=== PATIENT | male | born 1960 | race Caucasian/White ===

== ENCOUNTER → 2016-08-26 | Outpatient (CLI) | payer OTHER ==
[~2016-08-26] MED LIST: AFRI0.052 EACH NARE; CPMMACHINE; DOCU1CAP39 PO; ERYT.5%O LEFT EYE; GETGO ROLLING W1 MI1; HYDR-3583 PO; MISC-163; PERC5TAB12 PO; REST15CA PO; THERTAB15 PO; WALKER WHEELS/F1 MIS; WHEEMIS3
[2016-08-26 10:15] LABS: AUTOMATED NEUTROPHIL # 4.2 TH/MM3 (1.8-7.7); BASOPHIL # 0.1 TH/MM3 (0-0.2); BASOPHIL % 0.8 % (0.0-2.0); EOSINOPHIL # 0.4 TH/MM3 (0-0.4); EOSINOPHIL % 5.8 % (0.0-4.0); HEMATOCRIT 43.5 % (39.0-51.0); HEMO FLAGS DIFF FINAL; LYMPH % 22.4 % (9.0-44.0); LYMPHOCYTE # 1.4 TH/MM3 (1.0-4.8); MEAN CELL VOLUME 91.2 FL (80.0-100.0); MEAN CORPUSCULAR HEMOGLOBIN 31.5 PG (27.0-34.0); MEAN CORPUSCULAR HGB CONC 34.5 % (32.0-36.0); MONO % 5.6 % (0.0-8.0); NEUT % 65.4 % (16.0-70.0); PLATELET COUNT 197 TH/MM3 (150-450); PROTHROMBIN TIME - PATIENT 10.7 SEC (9.8-11.6); RED BLOOD COUNT 4.77 MIL/MM3 (4.50-5.90); WHITE BLOOD COUNT 6.4 TH/MM3 (4.0-11.0)
[2016-08-26 11:01] LABS: HDL CHOLESTEROL 83.2 MG/DL (40.0-60.0)
== END ==
LOC: CLAB 09:47
PROVIDERS: ATTEND Family Medicine
DX: M25.522 Pain in left elbow (principal); Z00.01 Encounter for general adult medical examination with abnormal findings
CPT/HCPCS: 36415; 80061; 82306; 82607; 84443; 85025; 85610

== ENCOUNTER 2016-09-05 07:36 | Inpatient (IN) | payer OTHER ==
[~2016-09-05] VITALS: Ht 188 cm; Wt 132.4 kg
[2016-09-05] MEDS ORDERED: AFRI0.052 EACH NARE (08:35)
--- NOTE | 2016-09-07 15:33 | MH ---
cc: Paresh LENNON M.D. DATE OF ADMISSION: 09/14/2016 PREOPERATIVE DIAGNOSIS Osteoarthritic degeneration with varus deformities both left and right knees, now for total knee arthroplasties. ADMISSION HISTORY AND PHYSICAL This pleasant 55-year-old male is being admitted today for total left and right knee arthroplasty due to severe painful osteoarthritic degeneration with genu varus deformities. OTHER PAST HISTORY The patient has a history of no medical problems other than arthritis and he does have sleep apnea. He does not take medication for this. REVIEW OF SYSTEMS Review of systems is noncontributory. FAMILY HISTORY Noncontributory. SOCIAL HISTORY He does not smoke. He does drink some alcohol. PREVIOUS SURGERIES Previous surgeries include appendectomy and shoulder surgery. REVIEW OF SYSTEMS Noncontributory. FAMILY HISTORY Noncontributory. ALLERGIES PENICILLIN. PHYSICAL EXAMINATION GENERAL: We find a 55-year-old male, well-developed, well-nourished, oriented x3 complaining of pain in his knees. VITAL SIGNS: Blood pressure 130/82, pulse 56 and regular, respirations 18, temperature 98.5, pulse oximetry 98% on room air. HEENT: Eyes PERRLA, EOMI. Ears, nose, mouth clear. NECK: Supple. LUNGS: Clear. HEART: Regular rate. ABDOMEN: Soft. Positive bowel sounds and nontender. EXTREMITIES: Both knees have genu varus deformity. She is neurovascularly intact to her toes. IMPRESSION AT THIS TIME Severe painful osteoarthritic degeneration both left and right knee. PLAN Admission for a bilateral total knee arthroplasty today. The patient given a prescription for postop pain control in the office, understands the use of Hibiclens scrub and Bactroban preoperatively and plans on going to rehab after surgery. MD SHEY Walker/ANGELINEL /2:59 PM /3:07 PM
[2016-09-14 08:26] VITALS: BP 153/81; PULSE 62; RESP 16; TEMP 96.8; O2SAT 98
[2016-09-14] MEDS: SODIUM CHLORIDE 0.9% IV SCH ×4 (08:30→15:15)
[2016-09-14] MEDS ORDERED: LACTATED RINGER'S 1000 ML IV SCH (08:30)
[2016-09-14] MEDS ORDERED: VANCOMYCIN 1000 MG/NS 250 ML (for <70 kg) IV SCH ×2 (08:30)
[2016-09-14] MEDS ORDERED: METOPROLOL TARTRATE 25 MG TAB PO PRN (08:30)
[2016-09-14] MEDS ORDERED: CHLORHEXIDINE GLUCONATE 4% SOLN 120 ML BTL TOP SCH (08:30)
[2016-09-14] MEDS: TRANEXAMIC ACID IV SCH ×4 (08:30→15:15)
[2016-09-14] MEDS ORDERED: INSULIN HUMAN REGULAR 1,000 UNITS/10 ML VIAL SQ PRN (08:30)
[2016-09-14] MEDS ORDERED: SODIUM CHLORID 0.9% 500 ML IV SCH (08:30)
[2016-09-14] MEDS ORDERED: CLINDAMYCIN 900 MG/NS 100 ML IV SCH ×2 (09:00)
[2016-09-14] MEDS ORDERED: SODIUM CHLORIDE 0.9% INJ 100 ML ONE (09:16)
[2016-09-14] MEDS ORDERED: MIDAZOLAM HCL 2 MG/2 ML VIAL ONE (09:57)
[2016-09-14] MEDS ORDERED: diphenhydrAMINE HCL 50 MG/ML VIAL IV PRN (10:30)
[2016-09-14] MEDS ORDERED: SODIUM CHLORIDE 0.9% FLUSH 5 ML FLUSH IVF PRN (10:30)
[2016-09-14] MEDS ORDERED: NALOXONE HCL 0.4 MG/ML AMP IV PRN (10:30)
[2016-09-14] MEDS ORDERED: MORPHINE SULFATE 30 MG/30 ML PCA IV SCH (10:30)
[2016-09-14] MEDS ORDERED: Post-op Orders (for Pharmacy) MISC XX ONE (10:30)
[2016-09-14] MEDS ORDERED: WALKER WHEELS/F1 MIS (10:39)
[2016-09-14] MEDS ORDERED: MISC-163 (10:39)
[2016-09-14] MEDS ORDERED: CPMMACHINE (10:39)
[2016-09-14] MEDS: BUPIVACAINE LIPOSO PF 1.3% INJ 20 ML, BUPIVACAINE PF 0.25% INJ 20 ML in SODIUM CHLORIDE... P-ARTICULR SCH ×2 (11:00→13:36)
[2016-09-14] MEDS ORDERED: BUPIVACAINE HCL PF 0.5% 30 ML VIAL NB ONE (11:20)
[2016-09-14] MEDS ORDERED: ACETAMINOPHEN 325 MG TAB PO PRN (12:00)
[2016-09-14] MEDS ORDERED: ACETAMINOPHEN/HYDROcodone 325 MG/10 MG TAB PO PRN (12:00)
[2016-09-14] MEDS ORDERED: ONDANSETRON HCL 4 MG/2 ML VIAL IVP PRN (12:00)
[2016-09-14] MEDS ORDERED: SODIUM CHLORIDE 0.9% IV SCH (12:00)
[2016-09-14] MEDS ORDERED: TEMAZEPAM 15 MG CAP PO PRN (12:00)
[2016-09-14] MEDS ORDERED: TRANEXAMIC ACID IV SCH (12:00)
[2016-09-14] MEDS ORDERED: GENTAMICIN SULFATE 80 MG/2 ML VIAL XX ONE (12:36)
[2016-09-14] MEDS ORDERED: FUROSEMIDE 40 MG/4 ML VIAL ONE (14:28)
[2016-09-14] MEDS ORDERED: ePHEDrine/NS 50 MG/5 ML SYR IV ONE (14:38)
[2016-09-14] MEDS ORDERED: PROPOFOL 200 MG/20 ML AMP IV ONE (14:38)
[2016-09-14] MEDS ORDERED: NEOSTIGMINE 3 MG/3 ML SYR IV ONE (14:38)
[2016-09-14] MEDS ORDERED: LACTATED RINGER'S 1000 ML INJ 2,000 ML IV ONE (14:38)
[2016-09-14] MEDS ORDERED: ONDANSETRON HCL 4 MG/2 ML VIAL IV PUSH ONE (14:38)
[2016-09-14] MEDS ORDERED: CLINDAMYCIN PHOS 900 MG/6 ML VIAL ONE (15:37)
[2016-09-14] MEDS ORDERED: ACETAMINOPHEN 1000 MG/100 ML VIAL IV ONE (16:12)
[2016-09-14] MEDS ORDERED: GENTAMICIN SULFATE 80 MG/2 ML VIAL ONE ×2 (16:24)
[2016-09-14] MEDS ORDERED: fentaNYL CITRATE 250 MCG/5 ML AMP ONE (16:56)
[2016-09-14] MEDS ORDERED: MORPHINE SULFATE 4 MG/ML INJ ONE (18:04)
[2016-09-14] MEDS: LACTATED RINGER'S 1000 ML INJ 1,000 ML IV SCH ×2 (18:05→22:56)
[2016-09-14] MEDS ORDERED: DO NOT ADM ANY ANTICOAGULANT DRUGS XX PRN (18:45)
--- NOTE | 2016-09-14 18:49 | RADRPT ---
EXAM DATE/TIME: 09/14/2016 18:04 [facility] COMPARISON: No previous studies available for comparison. INDICATIONS : Post op left knee arthroplasty MEDICAL HISTORY : None. SURGICAL HISTORY : None. ENCOUNTER: Initial ACUITY: 1 day PAIN SCORE: Non-responsive. LOCATION: Left knee FINDINGS: Two view examination of the left knee demonstrates postoperative left total knee replacement. Normal alignment. Air in soft tissues. CONCLUSION: 1. Postoperative left total knee replacement with air in soft tissues. Dileep Babb MD on September 14, 2016 at 18:47 Board Certified Radiologist. This report was verified electronically.
--- NOTE | 2016-09-14 18:55 | RADRPT ---
EXAM DATE/TIME: 09/14/2016 18:08 [facility] COMPARISON: No previous studies available for comparison. INDICATIONS : Post op right knee arthroplasty MEDICAL HISTORY : None. SURGICAL HISTORY : None. ENCOUNTER: Initial ACUITY: 1 day PAIN SCORE: Non-responsive. LOCATION: Right knee FINDINGS: Postoperative changes of right total knee replacement noted. Air and fluid in soft tissues. Normal al ignment. CONCLUSION: 1. Postoperative right total knee replacement. Dileep Babb MD on September 14, 2016 at 18:53 Board Certified Radiologist. This report was verified electronically.
[2016-09-14 19:15] VITALS: BP 131/77; PULSE 60; RESP 17; TEMP 98; O2SAT 95
[2016-09-14] MEDS: SODIUM CHLORIDE 0.9% FLUSH 5 ML FLUSH IVF SCH (21:00)
[2016-09-14] MEDS: PCA - TOTAL MG MORPHINE DELIVERED PER SHIFT SCH (22:00)
[2016-09-14] MEDS: OXYMETAZOLINE HCL 0.05% 15 ML NASAL SPRAY NASAL SCH (22:12)
[2016-09-14] MEDS: CLINDAMYCIN 150 MG CAP PO SCH (22:12)
[2016-09-15] VITALS (7 sets, daily range): BP systolic 115–142; BP diastolic 64–83; PULSE 57–76; RESP 17–18; TEMP 96.3–100.2; O2SAT 94–100
[2016-09-15] MEDS: PCA - TOTAL MG MORPHINE DELIVERED PER SHIFT SCH (06:00)
[2016-09-15] MEDS: CLINDAMYCIN 150 MG CAP PO SCH (06:22)
[2016-09-15 06:59] LABS: HEMATOCRIT 36.5 % (39.0-51.0); REVIEW FLAG FINAL
[2016-09-15] MEDS: ACETAMINOPHEN/HYDROcodone 325 MG/10 MG TAB PO PRN ×4 (08:46→22:17)
[2016-09-15] MEDS: SODIUM CHLORIDE 0.9% FLUSH 5 ML FLUSH IVF SCH ×2 (08:46→21:24)
--- NOTE | 2016-09-15 09:51 | PD.ORT.PN ---
Subjective Subjective Remarks pt fairly comfortable as far as knees are concerned. He is complaining of a sore buttocks from lying in bed so long. Objective Vitals Vital Signs Date Time Temp Pulse Resp B/P Pulse Ox O2 Delivery O2 Flow Rate FiO2 09/15/16 08:00 100.2 63 18 142/83 97 09/15/16 06:00 18 09/15/16 03:50 97.7 62 18 131/76 98 09/15/16 00:20 96.3 57 17 115/64 98 09/14/16 21:57 Nasal Cannula 2.00 09/14/16 19:15 98.0 60 17 131/77 95 09/14/16 19:00 98.0 71 14 145/82 97 Nasal Cannula 2 09/14/16 18:45 72 14 130/81 97 Nasal Cannula 2 09/14/16 18:30 76 14 132/73 96 Nasal Cannula 2 09/14/16 18:15 75 14 147/68 95 Nasal Cannula 2 09/14/16 18:12 12 09/14/16 18:00 98.0 85 14 161/84 96 Nasal Cannula 4 I/O 09/14/16 09/14/16 09/14/16 09/15/16 09/15/16 09/15/16 07:00 15:00 23:00 07:00 15:00 23:00 Intake Total 2740 ml 480 ml Output Total 1200 ml 400 ml Balance 1540 ml 80 ml Intake Oral 240 ml 480 ml Other 2500 ml Output Urine Total 900 ml 400 ml Estimated Blood Loss 300 ml # Bowel Movements 0 0 Result Diagram: 09/15/16 0635 Imaging Last 24 hours Impressions Knee X-Ray 09/14/16 1026 Signed Impressions: Service Date/Time: Wednesday, September 14, 2016 18:04 - CONCLUSION: 1. Postoperative left total knee replacement with air in soft tissues. Dileep Babb MD Objective Remarks Dressing is dry and intact. Moving toes well. No calf tenderness. Homans sign is negative. He is lying in bed at the present time. Assessment & Plan Ortho Post Op Day #: 1 Problem List: Assessment and Plan Out of bed today with physical therapy. Continue daily wound care. 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 Plan on discharge to [facility] after hospital stay. Paresh Wells MD Sep 15, 2016 09:51
--- NOTE | 2016-09-15 10:47 | PD.CONS ---
HPI Service [facility] Consult Requested By Orthopedic surgery Reason for Consult Medical management Primary Care Physician Ilir Love MD Diagnoses: History of Present Illness 55-year-old male with a history of severe bilateral knee osteoarthritis who despite medical management and injection continued to have severe knee pain affecting his daily living up activity. Patient is underwent bilateral total knee arthroplasty 09/14/16. He was seen this morning, and denies any acute event overnight. Bilateral knee pain currently controlled. He has no chest pain or shortness of breath Review of Systems Other Other 12 systems reviewed and are negative except for the one mentioned in history of present illness Past Family Social History Allergies: Coded Allergies: Penicillin (Verified Allergy, Unknown, 09/05/16) Past Medical History Bilateral severe knee osteoarthritis Past Surgical History Bilateral total knee arthroplasty 09/14/16 Appendectomy Right shoulder surgery Reported Medications See EMR Family History Noncontributory Social History Patient denies tobacco, alcohol or illicit drug intake Physical Exam Vital Signs Vital Signs Date Time Temp Pulse Resp B/P Pulse Ox O2 Delivery O2 Flow Rate FiO2 09/15/16 08:00 100.2 63 18 142/83 97 09/15/16 06:00 18 09/15/16 03:50 97.7 62 18 131/76 98 09/15/16 00:20 96.3 57 17 115/64 98 09/14/16 21:57 Nasal Cannula 2.00 09/14/16 19:15 98.0 60 17 131/77 95 09/14/16 19:00 98.0 71 14 145/82 97 Nasal Cannula 2 09/14/16 18:45 72 14 130/81 97 Nasal Cannula 2 09/14/16 18:30 76 14 132/73 96 Nasal Cannula 2 09/14/16 18:15 75 14 147/68 95 Nasal Cannula 2 09/14/16 18:12 12 09/14/16 18:00 98.0 85 14 161/84 96 Nasal Cannula 4 Physical Exam GENERAL: This is a well-nourished, well-developed patient, in no apparent distress. SKIN: No rashes, ecchymoses or lesions. Cool and dry. HEAD: Atraumatic. Normocephalic. No temporal or scalp tenderness. EYES: Pupils equal round and reactive. Extraocular motions intact. No scleral icterus. No injection or drainage. ENT: Nose without bleeding, purulent drainage or septal hematoma. Throat without erythema, tonsillar hypertrophy or exudate. Uvula midline. Airway patent. NECK: Trachea midline. No JVD or lymphadenopathy. Supple, nontender, no meningeal signs. CARDIOVASCULAR: Regular rate and rhythm without murmurs, gallops, or rubs. RESPIRATORY: Clear to auscultation. Breath sounds equal bilaterally. No wheezes , rales, or rhonchi. GASTROINTESTINAL: Abdomen soft, non-tender, nondistended. No hepato-splenomegaly , or palpable masses. No guarding. MUSCULOSKELETAL: Extremities without clubbing, cyanosis, or edema. Bilateral knee repair-neurovascular intact NEUROLOGICAL: Awake and alert. Cranial nerves II through XII intact. Motor and sensory grossly within normal limits. Five out of 5 muscle strength in all muscle groups. Normal speech. Laboratory Laboratory Tests Test 09/15/16 06:35 Hemoglobin 12.2 Hematocrit 36.5 Result Diagram: 09/15/16 0635 Imaging Last Impressions Knee X-Ray 09/14/16 1026 Signed Impressions: Service Date/Time: Wednesday, September 14, 2016 18:04 - CONCLUSION: 1. Postoperative left total knee replacement with air in soft tissues. Dileep Babb MD Assessment and Plan Problem List: (1) Osteoarthritis of knees, bilateral ICD Code: M17.0 Status: Acute (2) Status post total bilateral knee replacement ICD Code: Z96.653 Status: Acute Assessment and Plan 85-year-old male with Severe osteoarthritis of knee bilaterally: Status post total bilateral knee replacement 09/14/16 and management per orthopedic surgery. Continue current postop care. Pain management accordingly. PT consult to treat and eval Postop fever: Encourage incentive spirometry use DVT prophylaxis: Lovenox Thank you for this consultation Code Status Full code Discussed Condition With Patient and Robert Curran MD Sep 15, 2016 10:47
[2016-09-15] MEDS: LACTATED RINGER'S 1000 ML INJ 1,000 ML IV SCH (11:26)
--- NOTE | 2016-09-15 12:32 | MP ---
cc: Paresh WELLS M.D. DATE OF SURGERY 09/14/2016 PREOPERATIVE DIAGNOSIS Osteoarthritic degeneration both left and right knees. POSTOPERATIVE DIAGNOSIS Osteoarthritic degeneration both left and right knees. SURGERY PERFORMED Bilateral total knee arthroplasties using Consensus Prefabricated knee jig system. Components sizes - On the right knee was a size 6 femur, 5 tibi, 12 insert and a size 3 patella with two batches of Kinross Blue cement. On the left was a size 6 femur, 5 tibia, 10 insert and size 3 patella with two batches of Kinross Blue cement. TOURNIQUET TIME Right - 95 minutes at 300 mmHg pressure. Left - 90 minutes at [address] 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 PROCEDURE FOLLOWS After successful induction of anesthesia, the patient is placed on the operating room table in the supine position. The knee is prepped and draped in the usual manner. A tourniquet is inflated at the upper thigh and set to 300 mmHg pressure after exsanguination of the lower extremity. A longitudinal incision is made extending from 3 inches proximal to the superior pole of the patella, across the patella in longitudinal fashion, and down past the insertion of the tibial tubercle into the proximal tibia. The incision is carried down through subcutaneous tissue along the medial aspect of the patella and retinaculum, down through the capsule to expose the knee joint. The patella and patellar tendon are freed up enough to allow the patella to be inverted and retracted off the lateral side of the knee joint. The knee joint is left exposed. Small osteophytes are removed. All soft tissue is removed to allow proper position of the femoral and tibial cutting jig guide. The first femoral jig is then inserted along the distal end of the femur after first measuring to decide whether this is a small, medium, or large component. The notch is then drilled and the tibial cutting guide inserted into the femoral cutting guide, along with the ankle brace to allow for proper measurement of the tibial cutting surface that needed to be resected. Pins are inserted into the tibial cutting jig and femoral cutting jig to hold them in place. An oscillating saw is then used to resect the surface of the tibia. The surface of the tibia is then completely removed using sharp and blunt dissection. The anterior and posterior cuts of the femur are then made as well using an oscillating saw through the cutting guide. All guides are then removed and the varus/valgus angulation cutting guide applied to the femur for proper measurement of the proper amount of valgus. The anterior cutting guide for the femur is then inserted at the anterior femoral cuts made. Next, the first block trial is inserted into the femur to allow for proper condyle drill holes to be made which are then made followed by removal of the bone between the condyles using an oscillating saw as well as the bone removed at the most posterior surface of the condyle. After this, this guide is removed and the chamfer cuts made using the chamfer cutting guide from both anterior and posterior. Next, the femoral trial is then inserted, the tibial surface reflected anterior to expose the tibial surface and a tibial stem guide is inserted after first measuring for a standard, standard plus, large, or large plus surface to be used. After the stem is impacted the trial tibial surface is applied followed by the trial meniscal components. After full range of motion is found with the appropriate length meniscal components varying the patella is prepared by resecting the posterior aspect of the patella using an oscillating saw, inserting a trial. The trial is then removed and the cruciate cutting guide applied using the bur to cut the cruciate cuts. After cruciate cuts are made all trials are removed. The wound is irrigated copiously with antibiotic solution and Water Pik and the actual components inserted into place utilizing Consensus Prefabricated knee jig system. Components sizes - Right knee size 6 femur, 5 tibia, 12 insert and a size 3 patella with two batches of Kinross Blue cement. On the left was a size 6 femur, 5 tibia, 10 insert and size 3 patella with two batches of Kinross Blue cement. Right knee was done first, followed by the left knee. After the cement has hardened and the components were found to have full range of motion with no instability, the tourniquet is deflated, total tourniquet time being as above. The wound again is irrigated copiously with antibiotic solution, meticulous hemostasis achieved. No drain utilized. The deep fascia was approximated with running #2 Quill, the subcutaneous tissue approximated with interrupted running 2-0 and 3-0 Monocryl sutures, Steri-Strips, sterile dressing and knee immobilizer. An extra 1-1/2 hours of surgery time was needed for dissection and stabilization of this knee system because this patient is 6 feet, 2 inches and extremely large and extra dissection and time was needed, also lifting and bending his knee was more difficult. His bone was extremely hard and we used extra equipment to perform this surgery. The surgery was started 12:36 and did not finish until 17:06. ESTIMATED BLOOD LOSS: 300 cc in total. COUNTS: Sponge and suture counts were correct. The patient tolerated the procedure well and left the Operating Room in satisfactory condition. J. Jefe Wells MD JRR/SSB /5:32 PM /12:11 PM MTDD
[2016-09-15] MEDS ORDERED: CLINDAMYCIN INJ 900 MG in SODIUM CHLORIDE 0.9% INJ 100 ML IV SCH (16:00)
[2016-09-15] MEDS: ENOXAPARIN SODIUM 30 MG/0.3 ML SYRINGE SQ SCH (17:01)
[2016-09-15] MEDS ORDERED: DOCUSATE SODIUM 50 MG/SENNA 8.6 MG TAB PO SCH (21:00)
[2016-09-15] MEDS: OXYMETAZOLINE HCL 0.05% 15 ML NASAL SPRAY NASAL SCH (21:23)
[2016-09-15] MEDS: MAGNESIUM HYDROXIDE SUSP 30 ML CUP PO SCH (21:23)
[2016-09-15] MEDS: MULTIVITAMINS/MINERALS THERAPEUTIC TAB PO SCH (21:23)
[2016-09-15] MEDS: DOCUSATE SODIUM 100 MG CAP PO SCH (21:23)
[2016-09-16] VITALS: BP 113/63; PULSE 80; RESP 18; TEMP 99; O2SAT 98
[2016-09-16] MEDS: ACETAMINOPHEN/HYDROcodone 325 MG/10 MG TAB PO PRN ×2 (04:07→09:55)
[2016-09-16] MEDS: ENOXAPARIN SODIUM 30 MG/0.3 ML SYRINGE SQ SCH (05:00)
[2016-09-16 06:51] LABS: BICARBONATE 31.2 MEQ/L (21.0-32.0); POTASSIUM 4.4 MEQ/L (3.5-5.1)
[2016-09-16 07:07] LABS: HEMATOCRIT 32.4 % (39.0-51.0); REVIEW FLAG FINAL
[2016-09-16 08:00] VITALS: BP 147/67; PULSE 73; RESP 22; TEMP 97.7; O2SAT 100
[2016-09-16] MEDS: MAGNESIUM HYDROXIDE SUSP 30 ML CUP PO SCH (08:40)
[2016-09-16] MEDS: MULTIVITAMINS/MINERALS THERAPEUTIC TAB PO SCH (08:41)
[2016-09-16] MEDS: DOCUSATE SODIUM 100 MG CAP PO SCH (08:41)
[2016-09-16] MEDS: SODIUM CHLORIDE 0.9% FLUSH 5 ML FLUSH IVF SCH (08:43)
--- NOTE | 2016-09-16 09:25 | HHI.PR ---
Subjective Remarks Patient seen and examined Complains of insomnia He has some bilateral knee pain Afebrile Objective Vitals Vital Signs Date Time Temp Pulse Resp B/P Pulse Ox O2 Delivery O2 Flow Rate FiO2 09/16/16 08:00 97.7 73 22 147/67 100 09/16/16 00:00 99.0 80 18 113/63 98 09/15/16 21:23 21 09/15/16 20:00 98.4 74 18 131/73 94 09/15/16 16:00 98.4 72 18 138/81 100 09/15/16 11:59 98.9 76 18 127/77 100 09/15/16 11:53 97 Nasal Cannula 2.00 I/O 09/15/16 09/15/16 09/15/16 09/16/16 09/16/16 09/16/16 07:00 15:00 23:00 07:00 15:00 23:00 Intake Total 480 ml 700 ml 480 ml 480 ml Output Total 400 ml 600 ml Balance 80 ml 700 ml 480 ml -120 ml Intake Oral 480 ml 700 ml 480 ml 480 ml Output Urine Total 400 ml 600 ml # Voids 3 2 # Bowel Movements 0 0 Result Diagram: 09/16/16 0524 09/16/16 0524 Imaging Last Impressions Knee X-Ray 09/14/16 1026 Signed Impressions: Service Date/Time: Wednesday, September 14, 2016 18:04 - CONCLUSION: 1. Postoperative left total knee replacement with air in soft tissues. Dileep Babb MD Objective Remarks GENERAL: NAD SKIN: Warm and dry. HEAD: Normocephalic. EYES: No scleral icterus. No injection or drainage. NECK: Supple, trachea midline. No JVD or lymphadenopathy. CARDIOVASCULAR: Regular rate and rhythm without murmurs, gallops, or rubs. RESPIRATORY: Breath sounds equal bilaterally. No accessory muscle use. GASTROINTESTINAL: Abdomen soft, non-tender, nondistended. MUSCULOSKELETAL: No cyanosis, or edema. dressing over B knees BACK: Nontender without obvious deformity. No CVA tenderness. A/P Problem List: (1) Osteoarthritis of knees, bilateral ICD Code: M17.0 Status: Acute (2) Status post total bilateral knee replacement ICD Code: Z96.653 Status: Acute Assessment and Plan 55-year-old male with Severe osteoarthritis of knee bilaterally: Status post total bilateral knee replacement 09/14/16 and management per orthopedic surgery. Continue current postop care. Pain management accordingly. PT consult to treat and eval Postop fever: Encourage incentive spirometry use Insomnia: Restoril PRN DVT prophylaxis: Lovenox Discharge Planning Medically stable for discharge to [place] [facility] pending orthopedic surgery Robert Curran MD Sep 16, 2016 09:24
[2016-09-16] MEDS ORDERED: BACITRACIN OINT 0.9 GM PKT TOP PRN (10:15)
--- NOTE | 2016-09-16 10:20 | PD.ORT.PN ---
Subjective Subjective Remarks pt fairly comfortable as far as knees are concerned. He is complaining of a sore buttocks from lying in bed so long. Objective Vitals Vital Signs Date Time Temp Pulse Resp B/P Pulse Ox O2 Delivery O2 Flow Rate FiO2 09/16/16 08:00 97.7 73 22 147/67 100 09/16/16 00:00 99.0 80 18 113/63 98 09/15/16 21:23 21 09/15/16 20:00 98.4 74 18 131/73 94 09/15/16 16:00 98.4 72 18 138/81 100 09/15/16 11:59 98.9 76 18 127/77 100 09/15/16 11:53 97 Nasal Cannula 2.00 I/O 09/15/16 09/15/16 09/15/16 09/16/16 09/16/16 09/16/16 07:00 15:00 23:00 07:00 15:00 23:00 Intake Total 480 ml 700 ml 480 ml 480 ml Output Total 400 ml 600 ml Balance 80 ml 700 ml 480 ml -120 ml Intake Oral 480 ml 700 ml 480 ml 480 ml Output Urine Total 400 ml 600 ml # Voids 3 2 # Bowel Movements 0 0 Result Diagram: 09/16/16 0524 09/16/16 0524 Imaging Last 24 hours Impressions Knee X-Ray 09/14/16 1026 Signed Impressions: Service Date/Time: Wednesday, September 14, 2016 18:04 - CONCLUSION: 1. Postoperative left total knee replacement with air in soft tissues. Dileep Babb MD Objective Remarks Dressing is dry and intact. Moving toes well. No calf tenderness. Homans sign is negative. He is ambulating with walker and PT now. Buttock skin is intact. Min redness. Assessment & Plan Ortho Post Op Day #: 2 Problem List: Assessment and Plan Out of bed today with physical therapy. Continue daily wound care. Plan on discharge to [facility] today. Paresh Wells MD Sep 16, 2016 10:20
--- NOTE | 2016-09-16 10:25 | HHI.DS ---
Discharge Summary Admission Date Sep 14, 2016 at 07:50 Discharge Date: Sep 16, 2016 Admitting Diagnosis Osteoarthritic degeneration of both right and left knees Diagnosis: (1) Status post total bilateral knee replacement Diagnosis: Principal Brief History This is a 55 year old male patient CBC/BMP: 09/16/16 0524 09/16/16 0524 Significant Findings Laboratory Tests Test 09/15/16 09/16/16 06:35 05:24 Hemoglobin 12.2 GM/DL 11.4 GM/DL (13.0-17.0) (13.0-17.0) Hematocrit 36.5 % 32.4 % (39.0-51.0) (39.0-51.0) Estimat Glomerular Filtration 71 ML/MIN (>89) Rate Random Glucose 123 MG/DL (74-106) Calcium Level 8.2 MG/DL (8.5-10.1) PE at Discharge Dressing is dry and intact. Moving toes well. No calf tenderness. Homans sign is negative. He is ambulating with walker and PT now. Buttock skin is intact. Min redness. Hospital Course This patient was admitted on 09/14/16 with severe pain and osteoarthritic degeneration of both left and right knees. At the time of admission he underwent bilateral total knee arthroplasties. He received a course of prophylactic IV antibiotics and within 23 hours started on anticoagulation therapy. His WATER RESOURCE SPECIALIST was discontinued the day after surgery. He began out of bed with physical therapy tolerating food and fluids well. He remained afebrile and vital signs stable. He began taking by mouth pain medication and tolerating it well. He was discharged on postoperative day #2 to [place] [facility] rehabilitation unit for continuation of care in good condition. Pt Condition on Discharge: Good Discharge Disposition: Rehab Inpatient Discharge Instructions Diet Instructions: As Tolerated, No Restrictions Activities You Can Perform: Full Weight Bearing, Shower Only-No Bath Activities to Avoid: Bathing, Driving Paresh Wells MD Sep 16, 2016 10:25
[2016-09-22] MEDS ORDERED: MISC-163 (10:25)
[2016-09-22] MEDS ORDERED: GETGO ROLLING W1 MI1 (10:25)
[2016-09-22] MEDS ORDERED: WHEEMIS3 (10:25)
[2016-09-23] MEDS ORDERED: DOCU1CAP39 PO (08:05)
[2016-09-23] MEDS ORDERED: REST15CA PO (08:05)
[2016-09-23] MEDS ORDERED: THERTAB15 PO (08:05)
[2016-09-23] MEDS ORDERED: HYDR-3583 PO (08:05)
== END 2016-09-16 12:05 | DRG 462 ==
LOC: HSDI 09-14 07:50 → N06A 09-14 19:17
PROVIDERS: ADMIT Surgery; ATTEND Surgery
PROC: 0SRC0J9 Replacement of Right Knee Joint with Synthetic Substitute, Cemented, Open Approach (ICD-10-PCS; 2016-09-14)
PROC: 3E0T3CZ (ICD-10-PCS; 2016-09-14)
PROC: 3E0T3CZ (ICD-10-PCS; 2016-09-14)
PROC: 0SRD0J9 Replacement of Left Knee Joint with Synthetic Substitute, Cemented, Open Approach (ICD-10-PCS; principal; 2016-09-14 11:38)
DX: M17.0 Bilateral primary osteoarthritis of knee (principal); G47.30 Sleep apnea, unspecified; M21.161 Varus deformity, not elsewhere classified, right knee; M21.162 Varus deformity, not elsewhere classified, left knee; R50.82 Postprocedural fever; G47.00 Insomnia, unspecified
CPT/HCPCS: 73560; 80048; 85014; 85018; 86850; 86900; 86901; 94150; C1776; C9290; J0131; J1580; J1650; J1940; J2250; J2270; J2405; J2710; J3010; J3370; J7050; J7120; L1830

== ENCOUNTER → 2016-09-05 | Outpatient (CLI) | payer OTHER ==
[2016-09-05 09:24] LABS: HEMATOCRIT 42.7 % (39.0-51.0); MEAN CELL VOLUME 91.8 FL (80.0-100.0); MEAN CORPUSCULAR HEMOGLOBIN 31.6 PG (27.0-34.0); MEAN CORPUSCULAR HGB CONC 34.5 % (32.0-36.0); PLATELET COUNT 196 TH/MM3 (150-450); RED BLOOD COUNT 4.65 MIL/MM3 (4.50-5.90); REVIEW FLAG FINAL; WHITE BLOOD COUNT 5.9 TH/MM3 (4.0-11.0)
[2016-09-05 09:44] LABS: APTT (PATIENT) 25.9 SEC (24.3-30.1); PROTHROMBIN TIME - PATIENT 10.8 SEC (9.8-11.6)
[2016-09-05 09:55] LABS: ALKALINE PHOSPHATASE 80 U/L (45-117); ALT (GPT) 29 U/L (12-78); ANION GAP 7 MEQ/L (5-15); AST (GOT) 25 U/L (15-37); BICARBONATE 28.3 MEQ/L (21.0-32.0); BLOOD UREA NITROGEN 15 MG/DL (7-18); CHLORIDE 105 MEQ/L (98-107); GLOMERULAR FILTRATION RATE 58 ML/MIN (>89); GLUCOSE,FASTING 114 MG/DL (74-99); POTASSIUM 4.3 MEQ/L (3.5-5.1); SODIUM (NA) 140 MEQ/L (136-145); TOTAL BILIRUBIN ADULT 0.5 MG/DL (0.2-1.0)
[2016-09-05 11:32] LABS: BLOOD, URINE TRACE (NEG); GLUCOSE,URINE NEG (NEG); KETONE, URINE TRACE mg/dL (NEG); MUCUS URINE FEW /lpf (OCC); NITRITE,URINE NEG (NEG); URINE COLOR YELLOW (YELLW/STRAW)
[2016-09-05 11:33] LABS: COMMENT (UR) CULT NOT INDICATED; CULTURE IF INDICATED CULT NOT INDICATED
== END ==
LOC: CPRE 08:04
PROVIDERS: ATTEND Surgery
DX: Z01.812 Encounter for preprocedural laboratory examination (principal); M79.609 Pain in unspecified limb
CPT/HCPCS: 36415; 80053; 81001; 85027; 85610; 85730

== ENCOUNTER → 2016-10-05 | Outpatient (CLI) | payer OTHER ==
[~2016-10-05] MED LIST changes: -ERYT.5%O LEFT EYE; -PERC5TAB12 PO
[2016-10-05 12:33] LABS: AUTOMATED NEUTROPHIL # 5.9 TH/MM3 (1.8-7.7); BASOPHIL # 0.1 TH/MM3 (0-0.2); BASOPHIL % 0.7 % (0.0-2.0); EOSINOPHIL # 0.3 TH/MM3 (0-0.4); EOSINOPHIL % 3.8 % (0.0-4.0); HEMATOCRIT 36.4 % (39.0-51.0); HEMO FLAGS DIFF FINAL; LYMPH % 19.2 % (9.0-44.0); LYMPHOCYTE # 1.6 TH/MM3 (1.0-4.8); MEAN CELL VOLUME 88.4 FL (80.0-100.0); MEAN CORPUSCULAR HEMOGLOBIN 30.1 PG (27.0-34.0); MEAN CORPUSCULAR HGB CONC 34.1 % (32.0-36.0); MONO % 5.7 % (0.0-8.0); NEUT % 70.6 % (16.0-70.0); PLATELET COUNT 366 TH/MM3 (150-450); RED BLOOD COUNT 4.12 MIL/MM3 (4.50-5.90); RED CELL DISTRIBUTION WIDTH 13.4 % (11.6-17.2); WHITE BLOOD COUNT 8.3 TH/MM3 (4.0-11.0)
== END ==
LOC: CLAB 12:09
PROVIDERS: ATTEND Family Medicine
DX: M17.0 Bilateral primary osteoarthritis of knee (principal); D64.9 Anemia, unspecified; Z68.37 Body mass index [BMI] 37.0-37.9, adult
CPT/HCPCS: 36415; 85025